=== PATIENT | male | born 1955 | race Caucasian/White ===

== ENCOUNTER 2018-05-12 19:39 | Emergency (ER) | payer BC ==
[~2018-05-12] VITALS: Ht 190.5 cm; Wt 87.0 kg
[~2018-05-12 19:39] MED LIST: ADVIL200 MG PO; PERCOCET 5/325M1 TAB PO; TAM75CAP PO; TRANSDERM-SCOP1.5 MG TD
[2018-05-12 21:10] VITALS: BP 131/85
== END 2018-05-12 21:10 | disposition home or self-care (01) | DRG 605 ==
LOC: ED 19:39
PROC: 0HQFXZZ Repair Right Hand Skin, External Approach (ICD-10-PCS; principal; 2018-05-12)
DX: S61.011A Laceration without foreign body of right thumb without damage to nail, initial encounter (principal); W33.19XA Accidental malfunction of other larger firearm, initial encounter; Y93.89 Activity, other specified

== ENCOUNTER 2018-07-11 15:06 | Emergency (ER) | payer BC ==
[~2018-07-11] VITALS: Ht 190.5 cm; Wt 87.0 kg
[2018-07-11] MEDS ORDERED: TAMSULOSIN0.4 MG PO (15:30)
[2018-07-11] MEDS ORDERED: TRAVATAN Z0.004 % OD (15:33)
[2018-07-11 16:30] LABS: INFLUENZA A NONE DETECTED (NONE DETECT); INFLUENZA B NONE DETECTED (NONE DETECT)
[2018-07-11] MEDS ORDERED: TESSALON PER100 MG PO (16:32)
[2018-07-11] MEDS ORDERED: VENTOLIN HFA IN (16:32)
[2018-07-11] MEDS ORDERED: PREDNISONE50 MG PO (16:32)
[2018-07-11] MEDS ORDERED: ZITHROMAX250 MG PO (16:32)
[2018-07-11 16:55] VITALS: BP 131/71
== END 2018-07-11 16:55 | disposition home or self-care (01) | DRG 203 ==
LOC: ED 15:06
PROVIDERS: Emergency Medicine
DX: J20.9 Acute bronchitis, unspecified (principal)

== ENCOUNTER 2024-11-13 00:30 | Emergency (ER) | payer MEDICARE ==
[~2024-11-13] VITALS: Ht 190.5 cm; Wt 88.0 kg
[~2024-11-13 00:30] MED LIST changes: +PREDNISONE50 MG PO; +TAMSULOSIN0.4 MG PO; +TESSALON PER100 MG PO; +TRAVATAN Z0.004 % OD; +VENTOLIN HFA IN; +ZITHROMAX250 MG PO
[2024-11-13] MEDS ORDERED: KETOROLAC TROMETHAMINE 30 MG/ML SDV IV ONE (01:20)
[2024-11-13 01:28] LABS: BASO% 0.7 % (0-3); EOS% 2.8 % (0-8); HEMATOCRIT 41.5 % (39.0-50.0); HEMOGLOBIN 13.7 g/dl (14.0-18.0); IMMATURE GRANULOCYTES 0.8 % (0.0-5.0); LYMPH% 15.3 % (15-41); MEAN CELL VOLUME 93.7 fL CALC (80.0-100.0); MEAN CORPUSCULAR HGB 30.9 pG CALC (26.0-32.0); MONO% 9.3 % (2-13); NEUT# 6.3 thou/uL (1.82-7.42); NEUT% 71.1 % (42-76); RED BLOOD COUNT 4.43 mill/uL (4.70-6.10); RED CELL DISTRI WIDTH 12.2 % (11.5-15.5)
[2024-11-13 01:38] LABS: ALBUMIN 4.3 g/dL (3.2-5.0); BILIRUBIN, TOTAL 0.7 mg/dL (0.2-1.3); POTASSIUM 4.4 mmol/l (3.5-5.1); TOTAL PROTEIN 6.8 g/dL (6.3-8.2)
[2024-11-13 05:04] VITALS: BP 141/80
== END 2024-11-13 05:04 | disposition home or self-care (01) ==
LOC: ED 00:30
PROVIDERS: Family Medicine
DX: K80.20 Calculus of gallbladder without cholecystitis without obstruction (principal); Z87.891 Personal history of nicotine dependence